=== PATIENT | female | born 1960 | race Caucasian/White ===

== ENCOUNTER → 2016-06-18 | Outpatient (CLI) | payer MEDICARE, BC ==
[2016-06-18 10:47] LABS: CH 28.7; CHCM 32.5; HCT 44.3 % (34.0-46.0); HDW 2.47; MCHC 31.6 g/dL (31.0-37.0); MCV 88.6 fL (80.0-100.0); Mean Platelet Volume 7.3; RDW 13.1 % (11.5-15.5); WBC 5.5 k/uL (3.8-10.6)
== END | disposition home or self-care (01) ==
LOC: LABWHC1 09:57
PROVIDERS: ATTEND Psychiatry & Neurology Psychiatry
DX: Z51.81 Encounter for therapeutic drug level monitoring (principal); Z79.899 Other long term (current) drug therapy; F31.60 Bipolar disorder, current episode mixed, unspecified
CPT/HCPCS: 36415; 80164; 80175; 84460; 85027

== ENCOUNTER → 2016-11-26 | Outpatient (CLI) | payer MEDICARE, BC ==
[2016-11-26 10:08] LABS: CH 30.5; CHCM 33.6; HCT 45.8 % (34.0-46.0); HDW 2.21; HGB 14.7 gm/dL (11.4-16.0); MCH 29.3 pg (25.0-35.0); MCHC 32.1 g/dL (31.0-37.0); MCV 91.2 fL (80.0-100.0); Mean Platelet Volume 7.9; RBC 5.02 m/uL (3.80-5.40); RDW 14.6 % (11.5-15.5); WBC 5.3 k/uL (3.8-10.6)
== END | disposition home or self-care (01) ==
LOC: LABWHC1 09:25
PROVIDERS: ATTEND Psychiatry & Neurology Psychiatry
DX: F31.60 Bipolar disorder, current episode mixed, unspecified (principal); Z79.899 Other long term (current) drug therapy
CPT/HCPCS: 36415; 80164; 84460; 85027

== ENCOUNTER 2016-12-31 07:11 | Day surgery (SDC) | payer MEDICARE, BC ==
[2016-12-29 10:14] VITALS: BMI 28.0
[~2016-12-31 07:11] MED LIST: DEXAMETHASONE SOD PHOSPHATE 10 MG/ML 1 ML VIAL IV ONE; DEXAMETHASONE SOD PHOSPHATE 4 MG/ML 1 ML VIAL IV ONE; FAMOTIDINE 20 MG/2 ML VIAL IV ONE; LACTATED RINGERS 1,000 ML IV SCH; LIDOCAINE 1% 20 ML VIAL (10MG/ML) FOR IV START INTRADERMA PRN; ONDANSETRON 4 MG/2 ML VIAL IVP ONE; SCOPOLAMINE 1.5MG/72HR PATCH TRANSDERM ONE; ceFAZolin 2 GM in SODIUM CHLORIDE 0.9% 100 ML IVPB ONE; fentaNYL (PF) 50 MCG/ML 2 ML AMP IV PRN
[2016-12-31] MEDS: OXYMETAZOLINE 0.05% NASL SPRAY 1 SPRAY BOTTLE NASAL ONE ×5 (07:35→07:55)
[2016-12-31 07:39] VITALS: RESP 16
[2016-12-31] MEDS ORDERED: fentaNYL (PF) 50 MCG/ML 2 ML AMP ONE (08:19)
[2016-12-31] MEDS ORDERED: PROPOFOL 10 MG/ML 20 ML VIAL IV ONE (08:19)
[2016-12-31] MEDS ORDERED: MIDAZOLAM 2 MG/2 ML VIAL ONE (08:19)
[2016-12-31] MEDS ORDERED: SUCCINYLCHOLINE CHLORIDE 100 MG/5 ML SYR IV ONE (08:19)
[2016-12-31] MEDS ORDERED: LIDOCAINE 1% INJ 10MG/ML (20 ML MDV) ONE (08:19)
[2016-12-31] MEDS ORDERED: LIDOCAINE 2%-EPI 1:100,000 20 ML VIAL SUBMUCOSAL ONE (08:39)
[2016-12-31] MEDS ORDERED: EPINEPHrine 1 MG/ML (MDV) 30 ML VIAL TOPICAL ONE (08:54)
[2016-12-31] MEDS ORDERED: FLUORESCEIN STRIPS 1 MG STRIP MISCELLANE ONE (08:54)
[2016-12-31 09:29] VITALS: TEMP 97
--- NOTE | 2016-12-31 09:45 | P.OP ---
Date of Procedure: 12/31/16 Preoperative Diagnosis: Chronic sinusitis ALLERGIC fungal sinusitis Polypoid degeneration Postoperative Diagnosis: Same Procedure(s) Performed: Bilateral functional endoscopic sinus surgery with maxillary antrostomies and total ethmoidectomies with removal of fungal elements and polypoid degeneration Implants: Propel Anesthesia: FIDENCIO Surgeon: [place] Pathology: other (Sinonasal) Condition: stable Disposition: PACU Indications for Procedure: This patient has failed medical therapy and has had persistent chronic sinusitis. She's failed antibiotics cortisone nasal sprays etc. She has total anosmia constant discolored drainage congestion etc. All risks, benefits, and alternative therapies regarding this procedure were discussed in detail. Consent was obtained and all questions were answered. Operative Findings: Same Description of Procedure: This patient was taken to the operative room and placed in the supine position. A general inhalation anesthetic was administered to the patient by mask and subsequently intubated with a cuffed endotracheal tube by the department of anesthesia with a functioning IV line in place. The patient was monitored throughout the entire case by the department of anesthesia. The sphenopalatine ganglion was injected with lidocaine 1% with epinephrine 1 100,000. The lateral nasal wall was also injected with lidocaine 1% with epinephrine 1 100, 000. 10 minutes were allowed wait for full vasoconstrictive effects to take place. At this time and infraturbinal maxillary antrostomy was performed bilaterally with a Jesse and a microdebrider. Maxillary sinus was opened underneath the inferior turbinates and a nasal antral window was performed. The maxillary sinuses were entered and polypoid disease and fungal elements were removed. We then opened the maxillary sinuses above the inferior turbinate. We remove diseased tissue and opened and explored this this was done with 0 and 30 Pickett gardenia endoscopes. After the maxillary sinuses were open and endoscopy was performed we continued our dissection and a complete ethmoidectomy was performed with removal of diseased elements and all the intersinus septations. We removed all diseased tissue of the ethmoid sinuses both anteriorly and posteriorly bilaterally. This was done with use of endoscopes. After a total ethmoidectomy was performed bilaterally along with a supraturbinal maxillary antrostomy with removal of diseased elements with endoscopy, propel was inserted bilaterally and contour was placed on the left side. These drug-eluting stents were placed and excellent positioning was accomplished. The patient tolerated this well. Orquidea was then inserted. This was used for hemostasis. The patient was taken to postanesthesia recovery in excellent condition. Patient is to rest with head elevated and not to blow her nose. The patient has a follow-up appointment on January 04 at 3:15 PM.
[2016-12-31 10:43] VITALS: BP 154/95; PULSE 97
== END 2016-12-31 12:00 | disposition home or self-care (01) ==
LOC: OR 07:11
PROVIDERS: ATTEND Otolaryngology
DX: J32.0 Chronic maxillary sinusitis (principal); J32.2 Chronic ethmoidal sinusitis; B47.9 Mycetoma, unspecified; R56.9 Unspecified convulsions; F41.9 Anxiety disorder, unspecified; F31.9 Bipolar disorder, unspecified; I10 Essential (primary) hypertension; Z88.5 Allergy status to narcotic agent; Z88.2 Allergy status to sulfonamides; Z88.8 Allergy status to other drugs, medicaments and biological substances; Z79.899 Other long term (current) drug therapy; Z79.82 Long term (current) use of aspirin; Z90.710 Acquired absence of both cervix and uterus
CPT/HCPCS: 88305; 88312; 88311; 31255; 31267; C2625 ×2; J0171; J2250; J1100; J0690; J2405; J2001; J3010; J0330; J2704

== ENCOUNTER → 2017-06-21 | Outpatient (CLI) | payer MEDICARE, BC ==
[2017-06-21 09:44] LABS: ALT 25 U/L (9-52); AST 25 U/L (14-36); Albumin 3.8 g/dL (3.5-5.0); Alkaline Phosphatase 75 U/L (38-126); Anion Gap 8 mmol/L; Bilirubin, Delta 0.3 mg/dL (0.0-0.2); Bilirubin,Unconjugated 0.1 mg/dL (0.0-1.1); Blood Urea Nitrogen 21 mg/dL (7-17); Calcium 9.9 mg/dL (8.4-10.2); Carbon Dioxide 31 mmol/L (22-30); Chloride 103 mmol/L (98-107); Glucose 82 mg/dL (74-99); Potassium 4.5 mmol/L (3.5-5.1); Sodium 142 mmol/L (137-145); Total Bilirubin 0.4 mg/dL (0.2-1.3); Total Protein 6.4 g/dL (6.3-8.2)
[2017-06-21 09:49] LABS: Valproic Acid (Depakene) 72.3 ug/mL
== END | disposition home or self-care (01) ==
LOC: LABWHC1 08:56
PROVIDERS: ATTEND Psychiatry & Neurology Psychiatry
DX: F31.60 Bipolar disorder, current episode mixed, unspecified (principal); Z79.899 Other long term (current) drug therapy
CPT/HCPCS: 36415; 80048; 80076; 80164

== ENCOUNTER → 2017-08-13 | Outpatient (CLI) | payer MEDICARE, BC | END | disposition home or self-care (01) | LOC: LABWHC1 09:29 | PROVIDERS: ATTEND Psychiatry & Neurology Psychiatry | DX: F31.60 Bipolar disorder, current episode mixed, unspecified (principal); Z79.899 Other long term (current) drug therapy | CPT/HCPCS: 36415; 80164 ==

== ENCOUNTER → 2017-09-30 | Outpatient (CLI) | payer MEDICARE, BC ==
[2017-09-30 11:19] LABS: HCT 43.3 % (34.0-46.0); HGB 14.6 gm/dL (11.4-16.0); MCH 30.3 pg (25.0-35.0); MCHC 33.7 g/dL (31.0-37.0); MCV 89.8 fL (80.0-100.0); Mean Platelet Volume 7.7; Platelet Count 163 k/uL (150-450); RBC 4.82 m/uL (3.80-5.40); RDW 13.7 % (11.5-15.5); WBC 5.5 k/uL (3.8-10.6)
[2017-09-30 11:38] LABS: Valproic Acid (Depakene) 80.6 ug/mL
== END | disposition home or self-care (01) ==
LOC: LABWHC1 11:02
PROVIDERS: ATTEND Psychiatry & Neurology Psychiatry
DX: E03.9 Hypothyroidism, unspecified (principal); F31.60 Bipolar disorder, current episode mixed, unspecified; Z79.899 Other long term (current) drug therapy
CPT/HCPCS: 36415; 80164; 82390; 84443; 84460; 85027

== ENCOUNTER → 2018-01-13 | Outpatient (CLI) | payer MEDICARE, BC ==
[2018-01-13 09:51] LABS: HCT 43.9 % (34.0-46.0); HGB 14.7 gm/dL (11.4-16.0); MCH 30.4 pg (25.0-35.0); MCHC 33.5 g/dL (31.0-37.0); MCV 90.5 fL (80.0-100.0); Mean Platelet Volume 7.3; Platelet Count 178 k/uL (150-450); RBC 4.85 m/uL (3.80-5.40); RDW 14.3 % (11.5-15.5); WBC 5.2 k/uL (3.8-10.6)
[2018-01-13 10:07] LABS: Valproic Acid (Depakene) 45.2 ug/mL
== END | disposition home or self-care (01) ==
LOC: LABWHC1 09:14
PROVIDERS: ATTEND Psychiatry & Neurology Psychiatry
DX: F31.60 Bipolar disorder, current episode mixed, unspecified (principal); Z79.899 Other long term (current) drug therapy
CPT/HCPCS: 36415; 80164; 84460; 85027

== ENCOUNTER → 2018-03-08 | Outpatient (CLI) | payer MEDICARE, BC ==
[2018-03-08 10:51] LABS: HCT 40.9 % (34.0-46.0); HGB 13.8 gm/dL (11.4-16.0); MCH 30.4 pg (25.0-35.0); MCHC 33.9 g/dL (31.0-37.0); MCV 89.6 fL (80.0-100.0); Mean Platelet Volume 7.5; Platelet Count 175 k/uL (150-450); RBC 4.56 m/uL (3.80-5.40); RDW 14.2 % (11.5-15.5); WBC 4.4 k/uL (3.8-10.6)
[2018-03-08 19:12] LABS: Valproic Acid (Depakene) 73.8 ug/mL (50.0-100.0)
== END ==
LOC: LABWHC1 09:06
PROVIDERS: ATTEND Psychiatry & Neurology Psychiatry
DX: F31.60 Bipolar disorder, current episode mixed, unspecified (principal); Z79.899 Other long term (current) drug therapy
CPT/HCPCS: 36415; 80164; 84460; 85027

== ENCOUNTER → 2018-06-06 | Outpatient (CLI) | payer MEDICARE, BC ==
[2018-06-06 11:18] LABS: HCT 42.5 % (34.0-46.0); MCH 29.5 pg (25.0-35.0); MCV 89.3 fL (80.0-100.0); Platelet Count 195 k/uL (150-450); RBC 4.76 m/uL (3.80-5.40); RDW 14.1 % (11.5-15.5); WBC 5.9 k/uL (3.8-10.6)
[2018-06-06 17:20] LABS: Valproic Acid (Depakene) 83.7 ug/mL (50.0-100.0)
== END ==
LOC: LABWHC1 10:40
PROVIDERS: ATTEND Psychiatry & Neurology Psychiatry
DX: F31.60 Bipolar disorder, current episode mixed, unspecified (principal); Z79.899 Other long term (current) drug therapy
CPT/HCPCS: 36415; 80164; 84460; 85027

== ENCOUNTER → 2018-06-23 | Outpatient (CLI) | payer MEDICARE, BC ==
[2018-06-23 20:22] LABS: Anion Gap 4.7 mmol/L (4.00-12.00); Carbon Dioxide 31.3 mmol/L (21.6-31.8); Potassium 4.6 mmol/L (3.5-5.5)
== END | disposition home or self-care (01) ==
LOC: LABWHC1 09:21
PROVIDERS: ATTEND Psychiatry & Neurology Psychiatry
DX: E87.8 Other disorders of electrolyte and fluid balance, not elsewhere classified (principal)
CPT/HCPCS: 36415; 80048

== ENCOUNTER → 2018-07-07 | Outpatient (CLI) | payer MEDICARE, BC | END | disposition home or self-care (01) | LOC: LABWHC1 08:49 | PROVIDERS: ATTEND Psychiatry & Neurology Psychiatry | DX: E16.2 Hypoglycemia, unspecified (principal) | CPT/HCPCS: 36415; 82947 ==

== ENCOUNTER → 2018-10-10 | Outpatient (CLI) | payer MEDICARE, BC ==
[2018-10-10 09:15] LABS: HCT 42.1 % (34.0-46.0); HGB 13.6 gm/dL (11.4-16.0); MCH 28.2 pg (25.0-35.0); MCHC 32.3 g/dL (31.0-37.0); MCV 87.5 fL (80.0-100.0); Mean Platelet Volume 7.6; Platelet Count 206 k/uL (150-450); RBC 4.81 m/uL (3.80-5.40); RDW 14.9 % (11.5-15.5)
[2018-10-10 16:52] LABS: Valproic Acid (Depakene) 83.6 ug/mL (50.0-100.0)
== END | disposition home or self-care (01) ==
LOC: LABWHC1 08:28
PROVIDERS: ATTEND Psychiatry & Neurology Psychiatry
DX: J16.0 Chlamydial pneumonia (principal); Z79.899 Other long term (current) drug therapy
CPT/HCPCS: 36415; 80164; 80175; 82947; 84460; 85027

== ENCOUNTER → 2021-01-08 | Outpatient (CLI) | payer MEDICARE, BC, OTHER ==
--- NOTE | 2021-01-09 14:42 | ECHOF ---
Referral Reason: MEASUREMENTS -------- HEIGHT: 175.3 cm WEIGHT: 90.7 kg BP: RVIDd: 2.2 cm (< 3.3) IVSd: 1.2 cm (0.6 - 1.1) LVIDd: 3.4 cm (3.9 - 5.3) LVPWd: 1.3 cm (0.6 - 1.1) IVSs: 1.9 cm LVIDs: 1.3 cm LVPWs: 2.0 cm Ao Diam: 3.3 cm (2.0 - 3.7) AV Cusp: 2.0 cm (1.5 - 2.6) LA Diam: 3.2 cm (2.7 - 3.8) MV EXCURSION: 11.063 mm (> 18.000) MV EF SLOPE: 48 mm/s (70 - 150) EPSS: 0.6 cm MV E Yoni: 0.88 m/s MV DecT: 176 ms MV A Yoni: 0.94 m/s MV E/A Ratio: 0.94 RAP: 5.00 mmHg RVSP: 12.60 mmHg FINDINGS -------- Sinus rhythm. This was a technically adequate study. The left ventricular size is normal. There is mild concentric left ventricular hypertrophy. Overa ll left ventricular systolic function is normal with, an EF between 55 - 60 %. The diastolic fillin g pattern is normal for the age of the patient 13.32. The right ventricle is normal in size. The left atrial size is normal. The right atrial size is normal. The aortic valve is trileaflet, and appears structurally normal. No aortic stenosis or regurgitation. The mitral valve is normal. There is trace mitral regurgitation. The tricuspid valve appears structurally normal. Trace tricuspid regurgitation present. Right william tricular systolic pressure is normal at < 35 mmHg. There is no pulmonic regurgitation present. The aortic root size is normal. Normal inferior vena cava with normal inspiratory collapse consistent with estimated right atrial pre ssure of 5 mmHg. Echo free space may represent effusion or a pericardial fat pad. CONCLUSIONS -------- 1. There is mild concentric left ventricular hypertrophy. 2. Overall left ventricular systolic function is normal with, an EF between 55 - 60 %. 3. The left atrial size is normal. 4. The aortic valve is trileaflet, and appears structurally normal. No aortic stenosis or regurgitati on. 5. There is trace mitral regurgitation. 6. Trace tricuspid regurgitation present. REDEVELOPMENT MANAGER: Aga Ro RDCS
== END | disposition home or self-care (01) ==
LOC: RADECHMAIN 14:50
PROVIDERS: ATTEND Internal Medicine
DX: I08.8 Other rheumatic multiple valve diseases (principal)
CPT/HCPCS: 93306

== ENCOUNTER → 2021-01-16 | Outpatient (CLI) | payer MEDICARE, BC, OTHER ==
--- NOTE | 2021-01-16 17:11 | EEG ---
ELECTROENCEPHALOGRAM REPORT DATE OF SERVICE: 01/16/2021. CLINICAL HISTORY: This is a 60-year-old woman with a reported history of epilepsy, panic disorder and bipolar who has tremors of the hands. The patient is here for a sleep-deprived outpatient EEG to evaluate for seizure epileptiform activity. RELEVANT MEDICATION: The patient is on Lamictal and Depakote. EEG TYPE: A routine 21-channel EEG is performed with video using the 10/20 electrode system. DESCRIPTION: Wakefulness is only obtained. During wakefulness there is a posterior-dominant rhythm of low to moderate voltage that is well modulated and well sustained of 7 hertz activity. There is no sleep architecture seen. There is no focal slowing seen. Interictal and ictal: There is no epileptiform or seizure activity seen. During the study the patient had tremors of bilateral hands at different times of the study and was moving the head without any EEG correlate for seizure. ACTIVATION PROCEDURE: Photic stimulation did not evoke a posterior driving response. There is no abnormality during the photic stimulation. Hyperventilation is not performed. CLINICAL INTERPRETATION: This is an abnormal routine EEG. The background slowing is suggestive of mild encephalopathy. There are no focal slowing, epileptiform discharges or seizure on the EEG. Clinical correlation is recommended. MMODL / IJN: [id number] / MTDAnnabelle
== END ==
LOC: NEUROMAIN 07:54
PROVIDERS: ATTEND Psychiatry & Neurology Neurology
DX: R56.9 Unspecified convulsions (principal); Z88.1 Allergy status to other antibiotic agents; Z88.5 Allergy status to narcotic agent; Z88.2 Allergy status to sulfonamides; Z88.8 Allergy status to other drugs, medicaments and biological substances
CPT/HCPCS: 95819

== ENCOUNTER → 2021-05-16 | Outpatient (CLI) | payer MEDICARE, BC, OTHER ==
--- NOTE | 2021-05-17 00:48 | MR ---
EXAMINATION TYPE: MR brain and iac wo/w con DATE OF EXAM: 05/16/2021 COMPARISON: 10/23/2020 HISTORY: Chronic rt otalgia, hearing loss. CONTRAST: Standard multiplanar, multisequence MRI departmental protocol images were obtained without contrast a nd with 12 mL intravenous Gadavist gadolinium contrast. There is mild cerebral atrophy. There is no mass effect or midline shift. There is no sign of intracr anial hemorrhage. Corpus callosum is intact. Sella turcica is intact. There is some mild increased si gnal in the periventricular white matter on the T2 and FLAIR images. Diffusion images show no evidenc e of an acute infarct. The internal auditory canals appear normal. There is no evidence of cerebellopontine angle mass. The acoustic nerve and vestibular nerve appear normal. There is no evidence of orbital mass. The contrast images show no pathologic enhancement. There is normal enhancement of the venous sinuses . IMPRESSION: Cerebral atrophy. No acute intracranial abnormality. No evidence of focal posterior fossa abnormality . Mild white matter signal changes probably related to some mild microvascular ischemia.
== END | disposition home or self-care (01) ==
LOC: RADMRIMAIN 14:50
PROVIDERS: ATTEND Otolaryngology
DX: G31.89 Other specified degenerative diseases of nervous system (principal)
CPT/HCPCS: 70553

== ENCOUNTER → 2022-04-16 | Outpatient (CLI) | payer MEDICARE, BC, OTHER ==
--- NOTE | 2022-04-19 13:31 | MM ---
Reason for Exam: Screening (asymptomatic). Last mammogram was performed 23 year(s) and 8 month(s) ago. Patient History: Menarche at age 16. Patient has no children. Risk Values: Raeann 5 year model risk: 1.4%. NCI Lifetime model risk: 7.6%. Prior Study Comparison: No prior studies available for comparison. Tissue Density: There are scattered fibroglandular densities. Findings: Analyzed By CAD. Benign axillary tail lymph node posterior upper outer quadrant right breast. 2 microclips left breast from prior biopsies. No significant mass, suspicious microcalcification, or other discrete abnormality is seen. Overall Assessment: Benign, BI-RAD 2 Management: Screening Mammogram of both breasts in 1 year. 1. Patient should continue monthly self breast exams. 2. A clinical breast exam by your physician is recommended on an annual basis. 3. This exam should not preclude additional follow-up of suspicious palpable abnormalities. Electronically signed and approved by: Cherry Chatterjee M.D. Radiologist
== END | disposition home or self-care (01) ==
LOC: RADMAMWWP 14:36
PROVIDERS: ATTEND Internal Medicine
DX: Z12.31 Encounter for screening mammogram for malignant neoplasm of breast (principal)
CPT/HCPCS: 77063; 77067